=== PATIENT | female | born 1985 | race Hispanic/Latino ===

== ENCOUNTER → 2019-02-11 | Outpatient (CLI) | payer BC ==
[~2019-02-11] MED LIST: PENI500T2 PO; PREN1COM14 PO
[2019-02-11 12:56] LABS: MEAN CORPUSCULAR HEMOGLOBIN 28.6 pg (27.0-33.0); MEAN CORPUSCULAR HGB CONC 33.1 g/dL (32.0-36.0); MEAN CORPUSCULAR VOLUME 86.4 fL (79-99); PLATELET COUNT (AUTO) 247 K/uL (130-400); RED CELL DISTRIBUTION WIDTH 14.5 % (11.0-15.5); WHITE BLOOD COUNT (AUTO) 4.7 K/uL (4.8-10.8)
[2019-02-14 05:12] LABS: HEPATITIS Bs ANTIGEN SCREEN P Negative (Negative)
== END | disposition home or self-care (01) ==
LOC: LAB 11:08
PROVIDERS: ATTEND Specialist
DX: Z01.818 Encounter for other preprocedural examination (principal)
CPT/HCPCS: 36415; 85027; 86592; 86850; 86900; 86901; 87340

== ENCOUNTER → 2025-05-29 | Outpatient (CLI) | payer BC ==
[~2025-05-29] MED LIST changes: -PENI500T2 PO
--- NOTE | 2025-05-30 09:25 | HMCIMG ---
BILATERAL BREAST ULTRASOUND: Findings: Real-time examination of the both breasts demonstrates homogeneous echotexture throughout both the breasts. The right breast at 6:00 there is a hypoechoic which is lesion taller than wide measuring 1.9 x 1.1 x 1.3 cm. There. There is another nodule in the right breast at 8:00 measuring 0.8 x 0.5 x 0.7 cm suspicion for possible fibroadenoma. There is ductal ectasia seen in the right breast. There is benign-appearing right axillary lymph node measuring 2.5 x 0.8 x 1.2 cm the other lymph node measures 2.3 x 0.6 x 1.0 cm. The left breast is a solid hypoechoic lesion measuring 2.8 x 1.5 x 2.1 cm. There is under lesion seen also at 4:00 measuring 0.9 x 0.5 x 0.8 cm. The left axilla has benign-appearing lymph node measuring 1.7 x 1.2 x 2.2 cm there is a second lymph node measuring 1.3 x 0.6 x 1.0 cm.. IMPRESSION: Right breast at 6:00 there is a lesion which appears to be bothersome is taller than wide measuring 1.9 x 1.1 x 1.3 cm which is amenable for ultrasound-guided biopsy for histological sampling The left breast. Nodule appears to be prominent and palpable measuring 2.8 x 1.5 x 2.1 cm which is also amenable for ultrasound-guided biopsy. 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 FINAL ASSESSMENT: ACR: BI-RAD -4. Suspicious: Finding(s) without all the characteristics morphology of breast cancer but indicatingadefine probability of being malignant: biopsy should be considered.
--- NOTE | 2025-05-30 09:26 | HMCIMG ---
DIGITAL both breasts DIAGNOSTIC MAMMOGRAM Technique: The digital mammographic examination of both breasts in craniocaudal, mediolateral oblique views along with CAD was obtained. History: This is a 40 years year-old female 1, para1 Ab0 . Patient has no family history of breast cancer. Patient has no complaint Reference:Baseline mammogram. Breast composition: Breast composition C: The breasts are heterogeneously dense, which may obscure small masses. Finding: The digital mammographic examination of both breasts in craniocaudal and mediolateral oblique view along with CAD demonstrates moderately heterogeneously dense. Due to fibroglandular stromal elements. The left breast there is a large density seen which is also seen in the ultrasound at at 4:00 there is under lesion also a smaller satellite lesion also at 4:00. The right breast there is a hypoechoic lesion with calcification is 12 which on ultrasound appears to be taller than wide and ultrasound. This is amenable for ultrasound-guided biopsy for histological sampling. There is under lesion seen on ultrasound at 8:00 is not well seen on the mammogram.. There is no evidence of any dendritic mass, cluster microcalcification or architectural distortion. The retromammary fat appears to be normal. IMPRESSION: Right breast lesion at 6:00 and left breast lesion at 4:00 are amenable for ultrasound-guided biopsy for histological sampling. The other lesions appears to be fibroadenoma as noted on the ultrasound and mammography images. FINAL ASSESSMENT: ACR: BI-RAD -4. Suspicious: Finding(s) without all the characteristics morphology of breast cancer but indicatingadefine probability of being malignant: biopsy should be considered. In the NOTE: IF A WORK-UP OF THIS PATIENT LEADS TO A BIOPSY, PLEASE FORWARD A COPY OF THE PATHOLOGY REPORT TO OUR OFFICE REQUIRED BY [facility] EFFECTIVE MAY 16, 1994. A NEGATIVE MAMMOGRAM SHOULD NOT PRECLUDE BIOPSY OF A CLINICALLY PALPABLE SUSPICIOUS MASS, 10% OF BREAST CANCERS ARE MAMMOGRAPHICALLY OCCULT. THIS MAMMOGRAPHY FACILITY IS FULLY ACCREDITED BY THE FOOD AND DRUG [employer]MINISTRATION (FDA). THANK YOU FOR THIS REFERRAL.
== END | disposition home or self-care (01) ==
LOC: RAH 13:31
PROVIDERS: ATTEND Obstetrics & Gynecology
DX: N63.13 Unspecified lump in the right breast, lower outer quadrant (principal); N63.22 Unspecified lump in the left breast, upper inner quadrant; N60.41 Mammary duct ectasia of right breast; N64.89 Other specified disorders of breast; R92.333 Mammographic heterogeneous density, bilateral breasts; R92.1 Mammographic calcification found on diagnostic imaging of breast
CPT/HCPCS: 77066